=== PATIENT | female | born 1975 | race Caucasian/White ===

== ENCOUNTER → 2023-12-29 10:28 | Outpatient (REF) | payer BC, SELFPAY ==
[2023-12-30 20:25] LABS: Lamotrigine (Lamictal) 11.2 ug/mL (3.0-15.0)
== END ==
LOC: REG 10:28
PROVIDERS: ATTENDING PHYSICIAN Psychiatry & Neurology Neurology; FAMILY PHYSICIAN Physician Assistant
DX: G40.B09 Juvenile myoclonic epilepsy, not intractable, without status epilepticus (principal)
CPT/HCPCS: 36415; 80175

== ENCOUNTER → 2024-06-21 08:03 | Outpatient (REF) | payer BC, SELFPAY ==
[2024-06-21 09:22] LABS: % Basophils 0.9 % (0-2); % Immature Granulocytes 0.4 % (0-0.5); % Lymphocytes 32.8 % (20.5-51.1); % Monocytes 8.1 % (1.7-9.3); % Neutrophils 55.8 % (42.2-75.2); Absolute Eosinophils 0.1 10^3/uL (0-0.7); Absolute Lymphocytes 1.5 10^3/uL (1.2-3.4); Absolute Monocytes 0.4 10^3/uL (0.1-0.6); Absolute Neutrophils 2.5 10^3/uL (1.4-6.5); Hematocrit 38.1 % (37.0-47.0); Hemoglobin 13.6 g/dL (12.0-16.0); Mean Corp Hgb Conc. 35.7 g/dL (33.0-37.0); Mean Corpuscular Hgb 31.2 pg (27.0-31.0); Mean Corpuscular Volume 87.4 fL (81.0-99.0); Mean Platelet Volume 8.9 fL (7.4-10.4); Nucleated Red Blood Cells % 0 %; Platelet Count 248 10^3/uL (130-400); Red Blood Cell Count 4.36 10^6/uL (4.20-5.40); Red Cell Dist. Width 11.8 % (11.5-14.5); White Blood Cell Count 4.5 10^3/uL (4.8-10.8)
[2024-06-21 09:48] LABS: ALT (SGPT) 16 U/L (0-35); AST (SGOT) 19 U/L (14-36); Albumin 4.3 g/dl (3.5-5.0); Alkaline Phosphatase 75 U/L (38-126); Blood Urea Nitrogen 21 mg/dl (7-17); Calcium 9.1 mg/dl (8.4-10.2); Carbon Dioxide 27 mmol/L (22-30); Chloride 103 mmol/L (98-107); Glucose 91 mg/dl (70-99); HDL Cholesterol 61 mg/dl; LDL Cholesterol, Calculated 95 mg/dl; Potassium 4.5 mmol/L (3.5-5.1); Sodium 142 mmol/L (135-145); Total Bilirubin 0.5 mg/dl (0.2-1.3); Total Cholesterol 169 mg/dl (50-199); Total Protein 6.7 g/dl (6.3-8.2); Triglyceride 67 mg/dl (10-149); Urine Albumin Negative (Neg - Trace); Urine Bilirubin Negative (Negative); Urine Character Clear (Clear); Urine Color Yellow; Urine Glucose Negative (Negative); Urine Ketone Negative (Negative); Urine Leukocyte Negative (Negative); Urine Nitrite Negative (Negative); Urine Occult Blood Trace (Negative); Urine Specific Gravity 1.005 (<1.030); Urine Urobilinogen Negative (Neg - 1+); Very Low Density Lipoprotein 13 mg/dl (0-30); eGFR > 60.00
[2024-06-21 10:18] LABS: Urine Squamous Cell >30 /LPF (Few)
[2024-06-21 10:20] LABS: Urine Bacteria Few (Negative); Urine White Cell 0-2 /HPF (0-5)
== END ==
LOC: REG 08:03
PROVIDERS: ATTENDING PHYSICIAN Physician Assistant
DX: Z00.00 Encounter for general adult medical examination without abnormal findings (principal)
CPT/HCPCS: 36415; 80053; 80061; 81003; 81015; 84443; 85025

== ENCOUNTER 2025-01-02 20:02 | Emergency (ER) | payer BC, SELFPAY ==
[2025-01-02 20:03] VITALS: BP 123/80; BMI 27.5
[2025-01-02 20:08] VITALS: BP 123/80
[2025-01-02 20:09] LABS: Glucose - Point of Care 122 mg/dl (70-99)
[2025-01-02 20:19] LABS: % Basophils 0.6 % (0-2); % Eosinophils 1.3 % (0-6); % Lymphocytes 31.2 % (20.5-51.1); % Monocytes 8.1 % (1.7-9.3); % Neutrophils 57.8 % (42.2-75.2); Absolute Eosinophils 0.1 10^3/uL (0-0.7); Absolute Immature Granulocytes 0.1 10^3/uL (0-0.05); Absolute Lymphocytes 1.6 10^3/uL (1.2-3.4); Absolute Monocytes 0.4 10^3/uL (0.1-0.6); Hematocrit 37.5 % (37.0-47.0); Hemoglobin 13.7 g/dL (12.0-16.0); Mean Corp Hgb Conc. 36.5 g/dL (33.0-37.0); Mean Corpuscular Hgb 31.7 pg (27.0-31.0); Mean Corpuscular Volume 86.8 fL (81.0-99.0); Mean Platelet Volume 8.6 fL (7.4-10.4); Nucleated Red Blood Cells % 0 %; Platelet Count 205 10^3/uL (130-400); Red Blood Cell Count 4.32 10^6/uL (4.20-5.40); Red Cell Dist. Width 11.5 % (11.5-14.5); White Blood Cell Count 5.2 10^3/uL (4.8-10.8)
[2025-01-02 20:31] LABS: Blood Urea Nitrogen 18 mg/dl (7-17); Calcium 9.3 mg/dl (8.4-10.2); Carbon Dioxide 22 mmol/L (22-30); Chloride 106 mmol/L (98-107); Estimated Creatinine Clearance 88 ml/min; Glucose 122 mg/dl (70-99); Potassium 4.1 mmol/L (3.5-5.1); Sodium 139 mmol/L (135-145); eGFR > 60.00
[2025-01-02 21:00] VITALS: BP 126/83
[2025-01-02 21:19] LABS: HCG, Serum Qualitative Screen Negative
[2025-01-02] MEDS: NSS 1000 IV ×2 (21:23→22:12)
[2025-01-02] MEDS: DILAUDID 0.5 MG IV (21:23)
--- NOTE | 2025-01-02 21:30 | ED.GENMED ---
History of Present Illness
General
Chief Complaint: Seizure
Source: patient
Exam Limitations: none
Time Seen by Provider: 01/02/25 20:10
Nursing documentation reviewed up to this point in time: agreed with
History of Present Illness
History of Present Illness:
Patient is a 49-year-old female with a past medical history of epilepsy and migraine headache who presents by ambulance after having a seizure just prior to arrival. The seizure was witnessed by the patient's daughter who reports that the patient
seized while sitting on an ottoman and fell into the couch. Patient denies any specific pain from the seizure. She reports she has been previously feeling well and denies any recent fever, vomiting, diarrhea, sore throat and rash. Patient reports
that over the last few days, she has had a lingering migraine headache which feels like her typical migraine. She reports that she tried Motrin but it only slightly improved the headache. Patient currently has a moderate frontal headache. She
denies vision changes but states she feels slightly nauseous with the headache. She denies neck pain and back pain. Patient reports that she takes Lamictal 200 mg twice a day for seizure prevention and has not had a seizure for about 1 year.
Patient reports having a tonic-clonic seizure
Past History
Past History
ED Past Medical History: Asthma, Seizures and Other (Migraine headaches)
ED Past Surgical History: Cholecystectomy, and Other (Ear-tubes )
Patient has exhibited threatening behavior?: No
Social History
Tobacco: Non-smoker
Alcohol: None
Drug: None
Personal:
Living: with family
Employment: Other
Family History
Family History: Other
Review of Systems
Review of Systems
Allergies reviewed?: Yes
All Other Systems: ROS reviewed and negative except as documented in HPI and ROS
Constitutional: Reports no symptoms
EENT: Reports no symptoms
Respiratory: Reports no symptoms
Cardiac: Reports no symptoms
ABD/GI: Reports nausea
: Reports no symptoms
Musculoskeletal: Reports no symptoms
Skin: Reports no symptoms
Neurological: Reports headache
Endocrine: Reports no symptoms
Hematologic/Lymphatic: Reports no symptoms
Psychiatric: Reports no symptoms
Phy Exam
Physical Exam
Physical Exam:
Physical Exam
General: no apparent distress, not acutely ill. Atraumatic appearing face and head. Nontoxic
Neck: supple. no meningeal signs. normal psoterior pharynx. Nontender
Heart: s1/s2 regular rate and rhythm, no murmur. equal radial pulses.
Lungs: no acute respiratory distress. clear bilaterally
Abdomen: normal bowel sounds. not tender. no CVAT
Neuro: alert and orientedx3. no focal neurological deficits
Skin: no rash
Psychiatric: well kept. interactive and cooperative
Extremities: no edema. no calf tenderness. negative homans. good distal pulses
Course
Orders/Labs/Results
Orders:
Orders
01/02/25 20:10
Test Result ONCE
01/02/25 20:12
Basic Metabolic Panel Urgent
Complete Blood Count/With Diff Urgent
HCG, Serum Qualitative Screen Urgent
01/02/25 21:01
0.9% Sodium Chloride 1000 ml [Nss] 1,000 ml IV BOLUS
01/02/25 21:02
HYDROmorphone [Dilaudid] 0.5 mg IV NOW STA
01/02/25 21:07
CT Head W/o Iv Contrast Urgent
Comment:
Reason For Exam: seizure
01/02/25 21:53
EKG [Electrocardiogram (*1)] Urgent
Reason for Study: Chest Pain
01/02/25 21:54
Electrocardiogram (*1) Urgent
Reason for Study: Chest Pain
EKG- Treatment ONCE
Ketorolac [Toradol] 30 mg IV NOW STA
01/02/25 21:55
0.9% Sodium Chloride 1000 ml [Nss] 1,000 ml IV BOLUS
01/02/25 22:35
Lamotrigine [Lamictal] 200 mg PO NOW STA
01/02/25 22:39
Levetiracetam Injectable [Keppra] 1,000 mg IV NOW STA
01/02/25 22:54
Ondansetron Orally Disint [Zofran Odt (Orally Disintegrating)] 4 mg PO NOW STA
Abnormal Lab Results
01/02/25 01/02/25
20:08 20:12
MCH 31.7 H pg
(27.0-31.0)
Abs Immat Gran (auto) 0.1 H 10^3/uL
(0-0.05)
Immature Gran % 1.0 H %
(0-0.5)
BUN 18 H mg/dl
(7-17)
Glucose 122 H mg/dl
(70-99)
POC Glucose 122 H mg/dl
(70-99)
01/02/25 20:12
01/02/25 20:12
Vital Signs
Initial and Last Documented VS:
Initial Vital Signs
Temp Pulse Resp BP Pulse Ox
98.6 F 113 20 123/80 97
01/02/25 20:03 01/02/25 20:03 01/02/25 20:03 01/02/25 20:03 01/02/25 20:03
Last Documented Vital Signs
Temp Pulse Resp BP Pulse Ox
98.6 F 90 11 126/83 96
01/02/25 20:03 01/02/25 22:45 01/02/25 22:45 01/02/25 21:00 01/02/25 22:45
MDM/Problems Addressed
Differential Diagnosis Includes:
Acute on chronic migraine, breakthrough seizure, acute dehydration
MDM/Problems Addressed:
Patient presents with acute on chronic migraine headache and breakthrough seizure
Chronic conditions affecting care:
Epilepsy
Acute Exacerbation and/or Progression of Chronic Illness:
Patient had acute exacerbation of epilepsy resulting in breakthrough seizure
Acute Exacerbation and/or Progression of Chronic Illness: Other (Epilepsy)
*Radiology
Radiology exam reviewed: radiology read reviewed
*Pulse Oximetry
Patient hypoxic: no
*EKG
Interpreted by ED Provider?: Yes
Interpretation: normal
Comparison EKG: no comparison EKG present
Rate: normal
Rhythm: sinus
[place]: normal axis
Interval: normal interval
QRS Pattern: normal QRS
Ischemia: no ischemia
*Shirring Tender Interpretation
Rate: normal
Interpretation: normal
Rhythm: sinus
*Critical Care Note
Total Time (30-74mins, 75-104mins- exclusive of procedures): Not Applicable
Data Reviewed
Source: patient and family
Patient Management
Discussion with other providers: Other (Case discussed with neurology on-call, Dr. Rodney recommended that I start patient on 500 mg twice a day of Keppra. She recommended Keppra load of 1 g at this time)
Escalation/DeEscalation of care consider admission/obs:
Patient has been fully awake, alert and nontoxic. This seizure seems to be unprovoked, as patient does not appear to have any recent illnesses or infections.
Patient encouraged to take Keppra 500 mg twice a day in addition to her Lamictal and to call her neurologist soon as possible
ED Attending Note
-
Portions of this chart may have been created with voice recognition software.� Occasional wrong word or��sound alike� substitutions may have occurred due to the inherent limitations of voice recognition software.
Discharge Plan
Departure
Patient Disposition: Home (Routine Discharge)
Date of Disposition: 01/02/25
Time of Disposition: 22:55
Patient with high blood pressure during this ER visit?: Yes
Condition: Good
Covid-19: Not Applicable
Discharge Problem:
Seizure
Instructions: Seizures, Adult (DC)
Prescriptions:
New
levetiracetam [Keppra] 500 mg tablet
500 mg PO BID Qty: 30 0RF
No Action
folic acid 1 mg Tablet
1 mg PO DAILY
Lamictal
200 mg PO BID
albuterol sulfate
2 inh inhalation Q4H PRN (Reason: sob)
prednisone
10 mg PO DAILY PRN (Reason: SOB)
prednisone 10 mg Tablet
See Rx Instructions .ROUTE .COMPLEX Qty: 45 0RF
Rx Instructions:
Take By Mouth:
50 mg daily x3 days, 40 mg daily x3 days,
30 mg daily x3 days, 20 mg daily x3 days,
10 mg daily x3 days
albuterol sulfate 2.5 mg /3 mL (0.083 %) solution for nebulization
2.5 mg inhalation QID PRN (Reason: shortness of breath or wheezing) Qty: 180 0RF
Referrals:
Riana Childs PA [Family Provider] -
Activity Restrictions/Additional Instructions:
In addition to Lamictal 200 mg twice a day, our neurologist also recommended that you start taking Keppra 500 mg twice a day. Please discuss the Keppra with your neurologist as soon as possible and let your neurologist know that you had another
seizure. It is very important that you DO NOT drive until cleared by your neurologist. OUr neurologist recommended that you do not drive for 6 months
Interventions
Interventions:
*Risk Screen - Suicide Last Done: 01/02/25 20:03
*General Assessment Last Done: 01/02/25 20:03
*Neglect/Abuse Screening Last Done: 01/02/25 20:03
*ED- Fall Risk Assessment Last Done: 01/02/25 20:03
*ED COVID-19 Vaccine History Last Done: 01/02/25 20:03
ED- Cardiac Assessment Last Done: 01/02/25 20:11
ED- Neurological Assessment Last Done: 01/02/25 20:11
ED- Pulmonary Assessment Last Done: 01/02/25 20:11
Discharge Date and Time
Print Language: [id number]
[2025-01-02] MEDS: TORADOL 30 MG IV (22:12)
[2025-01-02] MEDS: KEPPRA 1000 MG IV (22:49)
[2025-01-02] MEDS: LAMICTAL 200 MG PO (22:49)
[2025-01-02] MEDS: ZOFRAN ODT (ORALLY DISINTEGRATING) 4 MG PO (22:57)
[2025-01-02 23:31] VITALS: BP 142/66
== END 2025-01-02 23:45 | disposition home or self-care (01) ==
LOC: EMR 20:02
PROVIDERS: EMERGENCY PHYSICIAN Emergency Medicine; FAMILY PHYSICIAN Physician Assistant
DX: G40.909 Epilepsy, unspecified, not intractable, without status epilepticus (principal); J45.909 Unspecified asthma, uncomplicated; Z90.49 Acquired absence of other specified parts of digestive tract
CPT/HCPCS: 99284; 96374; 96375; 96361; 70450; 80048; 82962; 84703; 85025; 93005

== ENCOUNTER → 2025-01-06 06:35 | Outpatient (REF) | payer BC, SELFPAY ==
[2025-01-06 07:06] LABS: % Basophils 0.5 % (0-2); % Eosinophils 1.9 % (0-6); % Immature Granulocytes 0.2 % (0-0.5); % Monocytes 7.9 % (1.7-9.3); % Neutrophils 55.5 % (42.2-75.2); Absolute Eosinophils 0.1 10^3/uL (0-0.7); Absolute Monocytes 0.5 10^3/uL (0.1-0.6); Absolute Neutrophils 3.3 10^3/uL (1.4-6.5); Hematocrit 39.1 % (37.0-47.0); Hemoglobin 13.8 g/dL (12.0-16.0); Mean Corp Hgb Conc. 35.3 g/dL (33.0-37.0); Mean Corpuscular Hgb 31.2 pg (27.0-31.0); Mean Corpuscular Volume 88.3 fL (81.0-99.0); Mean Platelet Volume 8.5 fL (7.4-10.4); Nucleated Red Blood Cells % 0 %; Platelet Count 215 10^3/uL (130-400); Red Blood Cell Count 4.43 10^6/uL (4.20-5.40); Red Cell Dist. Width 11.3 % (11.5-14.5); White Blood Cell Count 5.9 10^3/uL (4.8-10.8)
[2025-01-06 07:42] LABS: ALT (SGPT) 29 U/L (0-35); AST (SGOT) 21 U/L (14-36); Albumin 4.2 g/dl (3.5-5.0); Alkaline Phosphatase 83 U/L (38-126); Blood Urea Nitrogen 17 mg/dl (7-17); Calcium 9.5 mg/dl (8.4-10.2); Carbon Dioxide 28 mmol/L (22-30); Chloride 105 mmol/L (98-107); Glucose 91 mg/dl (70-99); Potassium 4.2 mmol/L (3.5-5.1); Sodium 143 mmol/L (135-145); Total Bilirubin 0.8 mg/dl (0.2-1.3); Total Protein 6.7 g/dl (6.3-8.2); eGFR > 60.00
[2025-01-07 18:13] LABS: Lamotrigine (Lamictal) 12.9 ug/mL (3.0-15.0)
== END ==
LOC: REG 06:35
PROVIDERS: ATTENDING PHYSICIAN Psychiatry & Neurology Neurology; FAMILY PHYSICIAN Physician Assistant
DX: G40.B09 Juvenile myoclonic epilepsy, not intractable, without status epilepticus (principal)
CPT/HCPCS: 36415; 80053; 80175; 85025